=== PATIENT | female | born 1980 | race Caucasian/White ===

== ENCOUNTER → 2025-08-15 16:05 | Outpatient (CLI) | payer OTHER, SELFPAY ==
--- NOTE | 2025-08-15 16:11 | DI.RAD.S_ITS ---
PROCEDURE: XR CHEST 2V INDICATIONS: Acute cough TECHNIQUE: 2 views of the chest were acquired. COMPARISON: None. FINDINGS: Surgical changes and devices: None. Lungs and pleura: Lungs are clear. No pleural effusions or pneumothorax. Bronchial wall thickening is noted. Mediastinum: Mediastinal contours are normal. Heart size is normal. Bones and chest wall: No suspicious bony abnormalities. Soft tissues appear unremarkable. IMPRESSION: Bronchial wall thickening is noted. These findings are nonspecific but can be due to reactive airways disease or bronchitis. No consolidation. No acute cardiopulmonary abnormality is seen. Dictated by: Re Huffman M.D. on 08/16/2025 at 6:09 Approved by: Re Huffman M.D. on 08/16/2025 at 6:10
== END ==
PROVIDERS: PCP Family Medicine; Referring Provider Family Medicine; Visit Provider Family Medicine
DX: R05.1 Acute cough (principal)
CPT/HCPCS: 71046